=== PATIENT | female | born 1950 | race Caucasian/White ===

== ENCOUNTER → 2023-10-03 08:51 | Outpatient (REF) | payer MEDICARE, BC, SELFPAY ==
[2023-10-03 12:01] LABS: % Basophils 0.7 % (0-2); % Eosinophils 1.3 % (0-6); % Immature Granulocytes 0.4 % (0-0.5); % Lymphocytes 17.1 % (20.5-51.1); % Monocytes 9.9 % (1.7-9.3); % Neutrophils 70.6 % (42.2-75.2); Absolute Eosinophils 0.1 10^3/uL (0-0.7); Absolute Monocytes 0.6 10^3/uL (0.1-0.6); Absolute Neutrophils 3.9 10^3/uL (1.4-6.5); Hematocrit 45.2 % (37.0-47.0); Hemoglobin 14.5 g/dL (12.0-16.0); Mean Corp Hgb Conc. 32.1 g/dL (33.0-37.0); Mean Corpuscular Hgb 27.6 pg (27.0-31.0); Mean Corpuscular Volume 86.1 fL (81.0-99.0); Mean Platelet Volume 10.7 fL (7.4-10.4); Nucleated Red Blood Cells % 0 %; Platelet Count 272 10^3/uL (130-400); Red Blood Cell Count 5.25 10^6/uL (4.20-5.40); Red Cell Dist. Width 13.4 % (11.5-14.5); White Blood Cell Count 5.5 10^3/uL (4.8-10.8)
[2023-10-03 12:19] LABS: ALT (SGPT) 24 U/L (0-35); AST (SGOT) 30 U/L (14-36); Albumin 4.5 g/dl (3.5-5.0); Alkaline Phosphatase 62 U/L (38-126); Blood Urea Nitrogen 20 mg/dl (7-17); Calcium 10.1 mg/dl (8.4-10.2); Carbon Dioxide 33 mmol/L (22-30); Chloride 94 mmol/L (98-107); Glucose 124 mg/dl (70-99); Potassium 3.9 mmol/L (3.5-5.1); Sodium 135 mmol/L (135-145); Total Bilirubin 0.6 mg/dl (0.2-1.3); Total Cholesterol 195 mg/dl (50-199); Total Protein 7.6 g/dl (6.3-8.2); Triglyceride 71 mg/dl (10-149); Very Low Density Lipoprotein 14 mg/dl (0-30); eGFR > 60.00
[2023-10-03 12:23] LABS: Glycohemoglobin (HgbA1c) 5.9 % (4.0-5.6)
[2023-10-03 12:30] LABS: HDL Cholesterol 138 mg/dl; LDL Cholesterol, Calculated 43 mg/dl
[2023-10-03 12:35] LABS: Vitamin D, 25-OH*** 59.3 ng/mL (30-80)
[2023-10-03 12:49] LABS: TSH Reflex To Free T4 0.92 uIU/ml (0.47-4.68)
[2023-10-03 12:59] LABS: Microalbumin, Random Urine 2.5 mg/dl (0.6-1.7)
== END ==
LOC: HWLAB 08:51
PROVIDERS: ATTENDING PHYSICIAN Nurse Practitioner Adult Health
DX: E78.00 Pure hypercholesterolemia, unspecified (principal); R73.03 Prediabetes; E55.9 Vitamin D deficiency, unspecified; D75.1 Secondary polycythemia; R80.9 Proteinuria, unspecified; M85.80 Other specified disorders of bone density and structure, unspecified site
CPT/HCPCS: 36415; 80053; 80061; 82043; 82306; 82570; 83036; 84443; 85025

== ENCOUNTER → 2023-12-22 08:13 | Outpatient (REF) | payer MEDICARE, BC, SELFPAY | LOC: HWWDC 08:13 | PROVIDERS: ATTENDING PHYSICIAN Nurse Practitioner Adult Health | DX: Z12.31 Encounter for screening mammogram for malignant neoplasm of breast (principal) | CPT/HCPCS: 77063; 77067 ==

== ENCOUNTER → 2024-04-02 11:10 | Outpatient (REF) | payer MEDICARE, BC, SELFPAY ==
[2024-04-02 16:04] LABS: ALT (SGPT) 23 U/L (0-35); AST (SGOT) 31 U/L (14-36); Albumin 4.7 g/dl (3.5-5.0); Alkaline Phosphatase 58 U/L (38-126); Blood Urea Nitrogen 19 mg/dl (7-17); Calcium 10.1 mg/dl (8.4-10.2); Carbon Dioxide 30 mmol/L (22-30); Chloride 96 mmol/L (98-107); Glucose 99 mg/dl (70-99); Potassium 4.3 mmol/L (3.5-5.1); Sodium 139 mmol/L (135-145); Total Bilirubin 0.7 mg/dl (0.2-1.3); Total Cholesterol 217 mg/dl (50-199); Total Protein 7.7 g/dl (6.3-8.2); Triglyceride 87 mg/dl (10-149); Very Low Density Lipoprotein 17 mg/dl (0-30); eGFR > 60.00
[2024-04-02 16:14] LABS: HDL Cholesterol 122 mg/dl; LDL Cholesterol, Calculated 78 mg/dl
[2024-04-03 10:01] LABS: Glycohemoglobin (HgbA1c) 5.7 % (4.0-5.6)
== END ==
LOC: HWLAB 11:10
PROVIDERS: ATTENDING PHYSICIAN Nurse Practitioner Adult Health
DX: R73.01 Impaired fasting glucose (principal); E78.00 Pure hypercholesterolemia, unspecified
CPT/HCPCS: 36415; 80053; 80061; 83036

== ENCOUNTER → 2024-06-21 07:22 | Outpatient (REF) | payer MEDICARE, BC, SELFPAY | LOC: HWRAD 07:22 | PROVIDERS: ATTENDING PHYSICIAN Nurse Practitioner Adult Health | DX: Z87.891 Personal history of nicotine dependence (principal) | CPT/HCPCS: 71271 ==

== ENCOUNTER 2024-08-03 23:26 | Inpatient (IN) | payer MEDICARE, BC, SELFPAY ==
[2024-08-03] VITALS (7 sets, daily range): BP systolic 122–155; BP diastolic 67–88
--- NOTE | 2024-08-03 16:06 | ED.GENMED ---
History of Present Illness
General
Chief Complaint: Breathing Problem
Time Seen by Provider: 08/03/24 15:58
History of Present Illness
History of Present Illness:
TIME OF INITIAL ENCOUNTER: 4 PM
HPI: A couple of weeks ago, the patient had worsening shortness of breath. She has a history of COPD. Her primary care provider put her on 5 days of steroids. She was a little bit better. Her cough improved. However in follow-up, it was noted
that she has been doing worse. Her primary care doctor sent a message here indicating room air sats of 88 to 90% after the DuoNeb and she dropped to 85%. Upon arrival here she was 79%. She was tachypneic. Although the patient does have an
abnormal EKG, she denies any chest pain or pressure.
EXAM:
GENERAL: Well appearing in no distress
HEENT: Moist oral mucosa
CARDIOVASCULAR: No murmurs, normal heart rate, regular rhythm, No chest wall tenderness
PULMONARY: The patient is in mild to moderate respiratory distress, she is, she has decreased breath sounds equally, there is wheeze bilaterally
ABDOMEN: Soft with no peritoneal signs, no tenderness
NEUROLOGIC: Excellent strength all extremities, no coordination deficits
PSYCHIATRIC: Appropriate mental status, normal insight and judgement
EXTREMITIES: Nontender, no edema, moves all extremities equally
SKIN: No rash, no lesions
NUMBER AND COMPLEXITY OF PROBLEMS ADDRESSED AT THE ENCOUNTER
� Chronic conditions affecting care: COPD
� Acute Exacerbation and/or Progression of Chronic Illness: This is an acute exacerbation of COPD
� Differential Diagnosis includes: Acute exacerbation of COPD, CHF, pneumonia, ACS
AMOUNT AND/OR COMPLEXITY OF DATA TO BE REVIEWED AND ANALYZED
� I performed an independent evaluation of and my interpretation is:
EKG: Sinus 85, biphasic T waves noted in V3 concerning for Wellen's sign
CT:
X-rays: Chest x-ray suggest some degree of atelectasis but no definite sign of pneumonia
Laboratory Studies: White count 12.1 (patient was recently on steroids), hemoglobin normal BNP 2330, troponin 0.024
Other:
� Review of other/old records: 1 month ago, the patient had a CT of the chest that showed stable nodules and emphysematous changes
� Clinical information was obtained by an independent historian: I spoke to at bedside
� Prescriptions/Medications Considered but not given:
� Further testing considered but not performed: Considered ABG however she does not appear to be hypercapnic with excellent mental status
RISK OF COMPLICATIONS AND/OR MORBIDITY OR MORTALITY OF PATIENT MANAGEMENT
� Social determinants of health affecting care: Lives at home
� Discussion with other providers: Dr. Anderson for admission at 5:15 PM
� Escalation of care including admission/observation vs risk of discharge considered: The patient is hypoxic. She has a history of COPD. She is failing outpatient management. She is still wheezing with decreased breath sounds.
I have placed her on IV steroids and DuoNebs. Planning admission to the hospital.
ANY OTHER UPDATES:
Pt was reated as COPD exacerbation 2wks ago w/ 5d of steroids. At PMD office, 85% RA after neb and on exertion. Very decreased breath sounds w/ wheeze here. 79% RA. 93% on NC oxygen. No definite pneumonia on CXR. Gave 2 duonebs and IV steroids.
COVID/Flu neg. BNP 2330 w/ no old to compare, but I feel CXR less likely - echo 1yr ago unremarkable. No CP, but did trop due to Wellen's appearing EKG and no old to compare; trop 0.024.
5:15 PM: Sats are 98% on 3 L/min after DuoNeb's, I have decreased her FiO2 down to 2 L/min.
Phy Exam
Physical Exam
Physical Exam:
See HPI
Scores
Heart Failure Risk
Heart Failure Risk Score: Not Applicable
Course
Orders/Labs/Results
Orders:
Orders
08/03/24 15:45
Electrocardiogram (*1) Urgent
Reason for Study: Shortness of Breath
EKG- Treatment ONCE
08/03/24 15:55
COVID-19 Antigen Urgent
Source: Nasal Swab
Complete Blood Count/With Diff Urgent
Comprehensive Metabolic Panel Urgent
Influenza A+B Rapid Molecular Urgent
KATIE Source: Nasal Swab
Specimen Description:
08/03/24 16:00
CR Chest Portable - 1 View Urgent
Comment:
Reason For Exam: sob copd
Reason Study Needs to be Portable: Patient Unstable
08/03/24 16:05
Ipratropium/Albuterol Sulfate [Duoneb] 3 ml INH R NOW STA
08/03/24 16:06
Ipratropium/Albuterol Sulfate [Duoneb] 3 ml INH R NOW STA
MethylPREDNISolone PF [Solu-Medrol Pf] 125 mg IV NOW STA
08/03/24 16:13
NT-proBNP Urgent
Troponin I Urgent
Abnormal Lab Results
08/03/24
15:55
WBC 12.1 H 10^3/uL
(4.8-10.8)
Hct 47.1 H %
(37.0-47.0)
MCHC 32.3 L g/dL
(33.0-37.0)
Absolute Neuts (auto) 10.0 H 10^3/uL
(1.4-6.5)
Absolute Lymphs (auto) 0.8 L 10^3/uL
(1.2-3.4)
Absolute Monos (auto) 1.2 H 10^3/uL
(0.1-0.6)
Neutrophils % 82.9 H %
(42.2-75.2)
Lymphocytes % 6.7 L %
(20.5-51.1)
Monocytes % 9.5 H %
(1.7-9.3)
Sodium 134 L mmol/L
(135-145)
Chloride 91 L mmol/L
(98-107)
Carbon Dioxide 36 H mmol/L
(22-30)
BUN 25 H mg/dl
(7-17)
Glucose 141 H mg/dl
(70-99)
08/03/24 15:55
08/03/24 15:55
Vital Signs
Initial and Last Documented VS:
Initial Vital Signs
Temp Pulse Resp Pulse Ox
36.6 C 91 22 79
08/03/24 15:39 08/03/24 15:39 08/03/24 15:39 08/03/24 15:39
Last Documented Vital Signs
Temp Pulse Resp BP Pulse Ox
36.6 C 91 22 155/88 97
08/03/24 15:39 08/03/24 15:39 08/03/24 15:39 08/03/24 15:44 08/03/24 15:44
*Critical Care Note
Total Time (30-74mins, 75-104mins- exclusive of procedures): Not Applicable
ED Attending Note
-
Portions of this chart may have been created with voice recognition software.� Occasional wrong word or��sound alike� substitutions may have occurred due to the inherent limitations of voice recognition software.
Discharge Plan
Departure
Patient Disposition: Admit
Date of Disposition: 08/03/24
Time of Disposition: 17:59
Presentation/result/management discussed w/ accepting MD/DO: Hospitalist
Discharge Problem:
Acute exacerbation of chronic obstructive pulmonary disease (COPD)
Prescriptions:
No Action
Breztri Aerosphere 160-9-4.8 mcg/actuation Hfa Aerosol Inhaler
2 inh INHALATION BID
Rx Instructions:
pt may take own on her
Crestor
10 mg PO HS
M.V.I. Adult
1 cap PO DAILY
Vitamin D3
2,000 units PO DAILY
calcium
1,000 mg PO DAILY
garlic
1 cap PO DAILY
hydrochlorothiazide
25 mg PO DAILY
Interventions
Interventions:
*Risk Screen - Suicide Last Done: 08/03/24 17:28
*General Assessment Last Done: 08/03/24 17:28
*Neglect/Abuse Screening Last Done: 08/03/24 17:28
ED- Cardiac Assessment Last Done: 08/03/24 17:28
ED- Pulmonary Assessment Last Done: 08/03/24 17:28
Discharge Date and Time
Print Language: TELUGU
[2024-08-03] MEDS: DUONEB 3 ML INH ×2 (16:13→16:19)
[2024-08-03] MEDS: SOLU-MEDROL PF 125 MG IV (16:19)
[2024-08-03 16:21] LABS: % Basophils 0.3 % (0-2); % Eosinophils 0.3 % (0-6); % Immature Granulocytes 0.3 % (0-0.5); % Lymphocytes 6.7 % (20.5-51.1); % Monocytes 9.5 % (1.7-9.3); % Neutrophils 82.9 % (42.2-75.2); Absolute Lymphocytes 0.8 10^3/uL (1.2-3.4); Absolute Monocytes 1.2 10^3/uL (0.1-0.6); Hematocrit 47.1 % (37.0-47.0); Hemoglobin 15.2 g/dL (12.0-16.0); Mean Corp Hgb Conc. 32.3 g/dL (33.0-37.0); Mean Corpuscular Hgb 28.3 pg (27.0-31.0); Mean Corpuscular Volume 87.7 fL (81.0-99.0); Mean Platelet Volume 10.4 fL (7.4-10.4); Nucleated Red Blood Cells % 0 %; Platelet Count 184 10^3/uL (130-400); Red Blood Cell Count 5.37 10^6/uL (4.20-5.40); Red Cell Dist. Width 14.2 % (11.5-14.5); White Blood Cell Count 12.1 10^3/uL (4.8-10.8)
[2024-08-03 16:27] LABS: ALT (SGPT) 29 U/L (0-35); AST (SGOT) 34 U/L (14-36); Albumin 4.3 g/dl (3.5-5.0); Alkaline Phosphatase 83 U/L (38-126); Blood Urea Nitrogen 25 mg/dl (7-17); Calcium 9.6 mg/dl (8.4-10.2); Carbon Dioxide 36 mmol/L (22-30); Chloride 91 mmol/L (98-107); Glucose 141 mg/dl (70-99); Potassium 4.2 mmol/L (3.5-5.1); Sodium 134 mmol/L (135-145); Total Bilirubin 0.6 mg/dl (0.2-1.3); Total Protein 7.5 g/dl (6.3-8.2); eGFR > 60.00
[2024-08-03 16:48] LABS: COVID-19 Antigen Negative (Negative)
[2024-08-03 17:01] LABS: NT-proBNP 2330 pg/ml; Troponin I 0.024 ng/ml
--- NOTE | 2024-08-03 19:46 | HPS.HSE ---
Family Physician
-
Family Physician: Idania Mejia
Chief Complaint
-
Shortness of breath, wheezing, hypoxia
History of Present Illness
74-year-old female who reports approximately 2 weeks ago on July 22 she had a persistent cough white in color, shortness of breath, wheezing and was diagnosed with acute bronchitis by her PCP. She was placed on prednisone 50 mg x 5 days starting
July 22 ending July 26 along with an oral course of doxycycline.. She reports feeling only slightly better with her cough improving however her oxygen level had been dropping. She does have history of COPD however states she was diagnosed
approximately [address] Mariana Garcia along with chronic left-sided nodules. She normally does not use her rescue inhaler or any corticosteroid inhalers until her recent bronchitis exacerbation when she was placed on Breztri 2 puffs twice
daily.. She was reportedly at PCP office today with O2 sat 85% on room air after nebulizer and on exertion. She did have very diminished breath sounds with wheezes and was 79% on room air here in the ER improving to 97% on 3 L nasal cannula.
She has past medical history of severe COPD Dx 2020, former smoker 55-year 1 pack a day quit age 71, per patient pulmonary nodules left-sided, depression�mild, splenic artery aneurysm, HTN, vitamin D deficiency, seasonal allergic rhinitis, HLD,
prediabetes, cervicothoracic meningioma 2006, cataracts
Medical History
Past Medical History
Past Medical History: Reports Other
Additional Past Medical History:
COPD-severe with previous PFT showing severe obstruction mild barrel chest per outpatient note July 30, 2024
Former smoker�55-year 1 pack a day quit age 71
Known left-sided pulmonary nodules follows with Dr. Garcia pulmonary
Depression�mild
Splenic artery aneurysm-patient was advised outpatient 2023 to be getting screenings but only once low-dose CT scan she was advised the risk of missing progression/ruptures and is okay with that per note
HTN
HLD
Vitamin D deficiency
Seasonal allergic rhinitis
prediabete
cervicothoracic meningioma 2006
cataracts
Past Surgical History: Reports Other
Additional Past Surgical History:
Wrist surgery 02/2004
Tubal ligation 1980
Colonoscopy multiple
Social History
Tobacco: Former Smoker (55-year 1 pack/day quit age 71)
Alcohol: None
Drug: None
Personal: (54 years to Juan)
Living: Alone
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
Family History
Family History: Other (Mother lung cancer age 84, father age 65 colorectal cancer 3 brothers 2 sisters reports all healthy is not sure of any medical problems. 1 daughter 1 son all healthy)
Allergies / Home Medications
Allergies reflects when Allergies were last updated in [employer]
Home Medications with original date entered in [employer]
Allergy/Medication List:
Allergies
Allergy/AdvReac Type Severity Reaction Status Date / Time
No Known Allergies Allergy Unverified 08/03/24 15:42
Home Medications
Crestor 10 mg PO HS 08/03/24
M.V.I. Adult 1 cap PO DAILY 08/03/24
Vitamin D3 2,000 units PO DAILY 08/03/24
budesonide 160 mcg-glycopyr 9 mcg-formot 4.8 mcg/actuation HFA inhaler (Breztri Aerosphere) 2 inh inhalation BID 08/03/24
calcium 1,000 mg PO DAILY 08/03/24
garlic 1 cap PO DAILY 08/03/24
hydrochlorothiazide 25 mg PO DAILY 08/03/24
Review of Systems
-
History Source: Patient and Family ( Juan hernandez 54 years at bedside)
A 12 point ROS was completed and negative except as noted: Yes
Constitutional: Denies Fever, Fatigue or Chills
EENT: Denies Sore Throat or Runny Nose
Respiratory: Reports Trouble Breathing (Shortness of breath with wheezing and AC); Denies Cough (White productive)
Cardiac: Denies Chest Pain, Diaphoresis, Palpitations or Syncope
Abdomen/GI: Denies Abdominal Pain, Nausea, Vomiting, Diarrhea, Constipated, Bloody Stools or Black Stools
: Denies Dysuria, Frequency, Flank Pain, Incontinence, Difficulty Voiding, Urgency or Bleeding
Musculoskeletal: Denies Joint Pain or Edema
Skin: Denies Itching or Rash
Neurological: Reports Headache (Frontal); Denies Dizzy or Weakness
Endocrine: Reports No Symptoms
Hematologic/Lymphatic: Reports No Symptoms
Psych: Reports Calm
Physical Exam
Vital Signs
Vital Signs
Temp Pulse Resp BP Pulse Ox
97.8 F 91 22 155/88 97
08/03/24 15:39 08/03/24 15:39 08/03/24 15:39 08/03/24 15:44 08/03/24 15:44
Physical Exam
General: Comfortable and Conversant; No Fever or Chills
HEENT: NormoCephalic, Anicteric, Moist mucous membranes, PERRLA, [place] Conjunctivae, No Ptosis and Oxygen (3 L nasal cannula)
Respiratory: Wheezes (Expiratory throughout both lung dhaliwal); No Rales or Rhonchi
Cardiac: S1/S2 and Regular Rhythm (Heart rate 98 bpm); No Murmur, Rub, Gallop or Peripheral Edema
Breast: Deferred by me
GI: Soft, Non Tender, Non Distended, Normal Bowel Sounds and No Hepatosplenomegaly
Rectal: Deferred by Provider
Genito-urinary: Deferred by me
Musculoskeletal: No Clubbing, No Cyanosis and No Edema
Skin: Warm and Dry; No Rash
Neuro: AO x 3, No Motor Deficits, Nonfocal/grossly intact, Cranial Nerves Intact and No Sensory Deficits; No Slurred Speech, Facial Droop, Tremors or Sedated
Psych: Calm
Laboratory Results
-
08/03/24 15:55
08/03/24 15:55
Laboratory Results
Total Bilirubin 0.6 mg/dl (0.2-1.3) 08/03/24 15:55
AST 34 U/L (14-36) 08/03/24 15:55
ALT 29 U/L (0-35) 08/03/24 15:55
Alkaline Phosphatase 83 U/L (38-126) 08/03/24 15:55
Troponin I 0.024 ng/ml 08/03/24 16:13
Data Reviewed
-
Diagnostic Radiology: Report Reviewed by me
Lab Data: Labs Reviewed by me
Impression/Plan
-
Impression/plan:
Admit to IMU
#Acute hypoxic respiratory insuff secondary to Acute Pulmonary Emboli RLL segmental pulmonary arteries
# NEW 4.6 centimeters dense subpleural CONSOLIDATION in the LLL concern for Pulmonary infarct or left lower lobe pneumonia
#Known LEFT SIDED PULM CYST [address] Garcia pulmonary
Finished 50 mg 5-day pack 07/22 - 07/26/2024 and doxycycline 100 mg twice daily 7-day course on 07/29/2024
79% RA, 96% 3 L NC, WBC 12.1 with left shift, afebrile, HR 91, 122/70
-COVID/influenza negative
-Sputum culture
-Check CT PE study
-Will give IV 0.9 NSS saline and follow BMP postcontrast
-IV Heparin drip with bolus due to pulmonary emboli
-Check 2D echo
-Consult Pulmonary
-Consult CBC cardiology
#NEW multifocal peripheral endobronchial disease throughout both lungs concern for atypical mycobacterial infection
-Respiratory precautions
-Monitor pulse ox, continue 3 L nasal cannula to titrate
-Consult Infectious disease
-IV Rocephin, IV Zithromax to cover for now until evaluation by ID
#COPD-Severe with previous PFT showing severe obstruction mild barrel chest per outpatient note July 30, 2024
#Former smoker�55-year 1 pack a day quit age 71
-Solu-Medrol 125 mg given in ER will continue IV Decadron 4 mg every 6 hours
CXR: Cannot exclude some minor bibasilar subsegmental atelectasis less likely pneumonia
#Acute hypoxia with abnormal EKG likely secondary to ischemia from PE
-Troponin 0.024 will trend
-Follow EKG
-Consult CBC cardiology
EKG: NSR 85 bpm, QTc 423 MS with T wave inversions anterior leads V1, V2, V3 and no prior EKGs
#HTN�benign
-BP 155/88
-Follow CBC cardiology
-Continue HCTZ 25 mg daily
2D echo 06/26/2023: EF 65 to 70%. No wall abnormalities, normal RVS RVSF, no valvular disease mild TR, pulm arterial pressure 36 mmHg
#HLD
-Check lipid profile
-Continue Crestor 10 mg at bedtime
#History of splenic artery aneurysm
-Per PCP note June 08, 2024 patient wanted low-dose CT scan of the chest for lung cancer screening was advised does not have recommended screening for splenic artery aneurysm which could miss a growth and therefore ruptured splenic artery
aneurysm which can lead to she verbalized understanding and continued to decline so per note. She did mention to me today about low-dose CT scans.
#Vitamin D deficiency
-Patient prefers to take her own medications due to hospital costs
-May take vitamin D3 2000 units, MVI
#Reported prediabetes
-BS 141, will check HgbA1c
Other PMH:
Seasonal allergic rhinitis
Cervicothoracic meningioma 2006
cataracts bilateral eyes states is in workup to have surgical repair
DVT prophylaxis
IV heparin drip
Full code
[2024-08-03 21:32] LABS: Troponin I 0.022 ng/ml
--- NOTE | 2024-08-03 21:38 | W.PN.UPDATE ---
Update Note
Progress Note Update
Attending addendum
Patient seen independently
74-year-old woman with SOB. 2 weeks ago she had a persistent cough, shortness of breath, wheezing and was diagnosed with acute bronchitis. She was placed on prednisone 50 mg x 5 days and an oral course of doxycycline. She has a history of COPD.
Today her O2 sat 85% on room air after nebulizer and on exertion. She had diminished breath sounds with wheezes and was 79% on room air here in the ER improving to 97% on 3 L nasal cannula. PE study CT was ordered in ER, but it is still pending.
Past Medical History
COPD-severe with previous PFT showing severe obstruction
Former smoker�55-year 1 pack a day quit age 71
Known left-sided pulmonary nodules
Depression�mild
Splenic artery aneurysm
essential HTN
HLD
Vitamin D deficiency
Seasonal allergic rhinitis
prediabetes
cervicothoracic meningioma 2006
cataracts
Wrist surgery 02/2004
Tubal ligation 1980
Colonoscopy multiple
Physical Exam
General: Comfortable and Conversant; No Fever or Chills, but tachypneic.
HEENT: NormoCephalic, Anicteric, Moist mucous membranes, PERRLA, [place] Conjunctivae, No Ptosis and Oxygen (3 L nasal cannula)
Respiratory: Wheezes (Expiratory throughout both lung dhaliwal); No Rales or Rhonchi
Cardiac: S1/S2 and Regular Rhythm (Heart rate 98 bpm); No Murmur, Rub, Gallop or Peripheral Edema
GI: Soft, Non Tender, Non Distended, Normal Bowel Sounds and No Hepatosplenomegaly
Psych: Calm
Impression/plan:
1. Acute hypoxic respiratory insuff secondary to Acute on chronic Severe COPD exac, vs PE vs
-Sputum culture
-Solu-Medrol 125 mg given, continue with IV Decadron 4 mg every 6 hours
-Check CT PE study
-IV 0.9 NSS saline and follow BMP postcontrast
2. Acute hypoxia with abnormal EKG concern for ischemic changes
-Troponin 0.024 will trend
-Follow EKG
-Consult CBC cardiology
please see [employer] note for full details on
HTN�benign
HLD
History of splenic artery aneurysm
Vitamin D deficiency
Reported prediabetes
Seasonal allergic rhinitis
Cervicothoracic meningioma 2006
cataracts bilateral eyes states is in workup to have surgical repair
DVT prophylaxis VCD
Full code
--- NOTE | 2024-08-03 22:35 | W.PN.UPDATE ---
Update Note
Progress Note Update
Patient has PE. Heparin gtt will be ordered.
[2024-08-03 22:51] LABS: Hematocrit 43.3 % (37.0-47.0); Hemoglobin 14.5 g/dL (12.0-16.0); Mean Corp Hgb Conc. 33.5 g/dL (33.0-37.0); Mean Corpuscular Hgb 28.8 pg (27.0-31.0); Mean Corpuscular Volume 85.9 fL (81.0-99.0); Mean Platelet Volume 10.4 fL (7.4-10.4); Platelet Count 179 10^3/uL (130-400); Red Blood Cell Count 5.04 10^6/uL (4.20-5.40); Red Cell Dist. Width 14.2 % (11.5-14.5); White Blood Cell Count 10.3 10^3/uL (4.8-10.8)
[2024-08-03] MEDS: HEPARIN 25000 UNITS/250 ML IV (22:55)
[2024-08-03] MEDS: NSS 1000 IV (23:00)
[2024-08-03 23:04] LABS: APTT 28.3 Sec (23.4-35.0)
[2024-08-03] MEDS: HEPARIN 4100 UNITS IV (23:04)
[2024-08-04] VITALS (13 sets, daily range): BP systolic 121–152; BP diastolic 64–82
[2024-08-04] MEDS: STERILE WATER FOR INJECTION 10 ML IV (00:32)
[2024-08-04] MEDS: ROCEPHIN 1000 MG IV (00:32)
[2024-08-04] MEDS: ZITHROMAX INFUSION 250 IV (00:32)
[2024-08-04] MEDS: DECADRON 4 MG IV ×4 (00:33→17:34)
[2024-08-04 00:52] LABS: Troponin I 0.018 ng/ml
--- NOTE | 2024-08-04 02:09 | DOWNTIME ---
There was a [employer] Downtime on 08/04/2024 from 0100 to 08/04/2024 at 0205 . Downtime documentation of patient's care, including medication administrations, has been reconciled in the electronic record per guidelines. Refer to the
patient's paper chart under the miscellaneous tab to see printed paper medication records and downtime forms.
[2024-08-04 06:00] LABS: % Basophils 0.1 % (0-2); % Immature Granulocytes 0.6 % (0-0.5); % Lymphocytes 4.8 % (20.5-51.1); % Monocytes 1.8 % (1.7-9.3); % Neutrophils 92.7 % (42.2-75.2); Absolute Immature Granulocytes 0.1 10^3/uL (0-0.05); Absolute Lymphocytes 0.4 10^3/uL (1.2-3.4); Absolute Monocytes 0.2 10^3/uL (0.1-0.6); Absolute Neutrophils 8.3 10^3/uL (1.4-6.5); Hematocrit 41.3 % (37.0-47.0); Hemoglobin 13.5 g/dL (12.0-16.0); Mean Corp Hgb Conc. 32.7 g/dL (33.0-37.0); Mean Corpuscular Hgb 28.5 pg (27.0-31.0); Mean Corpuscular Volume 87.1 fL (81.0-99.0); Mean Platelet Volume 10.1 fL (7.4-10.4); Nucleated Red Blood Cells % 0 %; Platelet Count 182 10^3/uL (130-400); Red Blood Cell Count 4.74 10^6/uL (4.20-5.40); Red Cell Dist. Width 14.1 % (11.5-14.5); White Blood Cell Count 8.9 10^3/uL (4.8-10.8)
[2024-08-04 06:09] LABS: APTT 96.2 Sec (23.4-35.0)
[2024-08-04 07:00] LABS: ALT (SGPT) 25 U/L (0-35); AST (SGOT) 28 U/L (14-36); Albumin 3.5 g/dl (3.5-5.0); Alkaline Phosphatase 67 U/L (38-126); Blood Urea Nitrogen 21 mg/dl (7-17); Calcium 8.7 mg/dl (8.4-10.2); Carbon Dioxide 32 mmol/L (22-30); Chloride 96 mmol/L (98-107); Estimated Creatinine Clearance 67 ml/min; Glucose 189 mg/dl (70-99); HDL Cholesterol 100 mg/dl; LDL Cholesterol, Calculated 70 mg/dl; Magnesium 1.9 mg/dl (1.6-2.3); Potassium 4.1 mmol/L (3.5-5.1); Sodium 134 mmol/L (135-145); Total Bilirubin 0.3 mg/dl (0.2-1.3); Total Cholesterol 181 mg/dl (50-199); Total Protein 6.5 g/dl (6.3-8.2); Triglyceride 59 mg/dl (10-149); Very Low Density Lipoprotein 11 mg/dl (0-30); eGFR > 60.00
[2024-08-04] MEDS: NSS IV (07:25)
[2024-08-04] MEDS: THERAGRAN PO (08:11)
--- NOTE | 2024-08-04 08:46 | CON.PUL ---
Consultation
Consultation Request
Date/Time Consultation Requested: 08/04/24
Date/Time Consultation Performed: 08/04/24
Performing Provider: Radha
Reason for Consultation: AECOPD
Medical History
-
History of Present Illness:
Patient is a 74-year-old female with history of HTN, presenting to ER for productive cough-white sputum, SOB/wheezing, 2 weeks prior. Treated with abx and prednisone and was notably hypoxemic in the PCP office to 85% on RA. Was sent to ER for
eval.
On arrival, notably 79% on RA. Underwent CTA showing PE, she is placed on IV heparin.
She was last seen in our office in 2020 for severe COPD and has not returned in FU since.
Past Medical History
Past Medical History: Other (see list below)
Social History
Tobacco: Former Smoker
Alcohol: None
Drug: None
Family History
Family History: Reviewed & Not Pertinent
Allergies / Home Medications
Allergies
Allergy/AdvReac Type Severity Reaction Status Date / Time
No Known Allergies Allergy Unverified 08/03/24 15:42
Home Medications
�Medication �Instructions �Recorded �Confirmed �Last Taken �Type
budesonide 160 mcg-glycopyr 9 2 inh inhalation R BID 08/03/24 08/04/24 08/03/24 09:00 History
mcg-formot 4.8 mcg/actuation HFA
inhaler (Breztri Aerosphere)
calcium carbonate 500 mg PO DAILY 08/03/24 08/03/24 08/02/24 09:00 History
cholecalciferol (vitamin D3) 25 25 mcg PO DAILY 08/03/24 08/03/24 08/02/24 09:00 History
mcg (1,000 unit) tablet (Vitamin
D3)
garlic 1,000 mg PO DAILY 08/03/24 08/04/24 08/02/24 09:00 History
hydrochlorothiazide 25 mg tablet 25 mg PO DAILY 08/03/24 08/03/2425 09:00 History
rosuvastatin 10 mg tablet (Crestor) 10 mg PO DAILY 08/03/24 08/03/24 08/02/24 22:00 History
therapeutic multivitamin 1 tab PO DAILY 08/03/24 08/03/24 08/02/24 09:00 History
Review of Systems
-
History Source: Patient
All other systems: Negative unless noted
Vitals / Labs / Diagnostic Testing
Vital Signs
Temp Pulse Resp BP Pulse Ox
98.0 F 77 27 135/74 96
08/04/24 07:12 08/04/24 06:00 08/04/24 06:00 08/04/24 06:00 08/04/24 06:00
Lab Data
08/04/24 05:50
08/04/24 05:50
Laboratory Results
08/03/24 08/04/24
22:44 05:50
APTT 28.3 96.2 H
Microbiology
08/03/24 15:55 Nasal Swab Influenza Types A & B (KHADIJAH) - Final
Negative for Influenza A & B, NAAT
Negative results must be combined with clinical observations
and patient history.
Nucleic Acid Amplification test (NAAT)performed on the
[employer] platform.
Diagnostic Testing:
Physical Exam
-
HEENT: Normocephalic, Anicteric and Moist Mucous Membranes
Cardiovascular: S1/S2 and Regular Rhythm
Respiratory: Wheeze (on R) and Non-Labored Respirations
GI: Soft, Non Distended and Non Tender
Neurology: Awake, Alert, Oriented and No Motor Deficits
Skin: Warm, Dry and Good Color
General: Comfortable and Other (NAD)
Assessment
-
Patient is a 74-year-old female with history of HTN, presenting to ER for productive cough-white sputum, SOB/wheezing, 2 weeks prior. Treated with abx and prednisone and was notably hypoxemic in the PCP office to 85% on RA. Was sent to ER for
eval. On arrival, notably 79% on RA. Underwent CTA showing PE, she is placed on IV heparin. We are consulted for eval.
Acute hypoxic respiratory failure, 79% on RA
Acute RLL PE
LLL consolidation infarct vs PNA
AECOPD
Hyperglycemia
Elevated proBNP
Conditions present [facility]
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
Followed by Dr Garcia, last seen 2020
Former smoker�55-year 1 pack a day quit age 71
Pulmonary nodules
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
Depression�mild
Splenic artery aneurysm
HTN
HLD
Vitamin D deficiency
Seasonal allergic rhinitis
Prediabetes
Cervicothoracic meningioma 2006
Cataracts
Wrist surgery 02/2004
Tubal ligation 1980
Plan
Significant hypoxemia noted on arrival, O2 marion 79%
There is no known history of O2 use at home--last 6MWT in office had not needed it
Will need eventual home O2 eval
There is known prior history of lung disease including severe COPD/emphysema
She was last seen in our office in 2020 and has not returned in FU since, has appt in September
Had not been on her controller inhalers, placed on Breztri 1 week prior by her primary
CXR/CT obtained indicating RLL PE, she is placed on IV heparin
Eventual transition to OAC
Other imaging reviewed --possible LLL infiltrate
Check sputum culture
Could consider coverage with azithro
Started on IV steroids for AECOPD
Eventual transition to PO prednisone
Wheezing on exam
Resume on home inhalers
ECHO results in past reviewed, stable function
She has new stage I DD, proBNP somewhat high
Could be due to PE
Diuresis if indicated
Will need outpatient pulmonary evaluation in our office including PFTs and 6MWT
Reviewed with patient
Likely to move up her appt date pending discharge
I reviewed this at bedside with patient and
We will follow
Diagnostic Data
CXR 08/03/24- Cannot exclude some minor bibasilar subsegmental atelectasis, less likely pneumonia.
CT CHEST 08/03/24- 1. ACUTE PULMONARY ARTERIAL EMBOLI in RIGHT LOWER LOBE SEGMENTAL PULMONARY ARTERIES.
2. Mild pulmonary arterial hypertension.
3. SEVERE BILATERAL UPPER LOBE EMPHYSEMA.
4. New 4.6 cm dense subpleural airspace consolidation in the posterior basilar segment of the left lower lobe. Diagnostic possibilities are (1) an acute pulmonary infarct or (2) left lower lobe pneumonia.
5. NEW MULTIFOCAL PERIPHERAL ENDOBRONCHIAL DISEASE throughout both lungs which is most likely infectious in etiology (possibly atypical mycobacterial infection).
6. Moderate bilateral bronchitis.
7. 4.0 cm circumscribed benign-appearing cyst in the left side of the upper posterior mediastinum.
ECHO 08/04/24- Normal left ventricular chamber size. Normal left ventricular systolic function. Left ventricular ejection fraction is 65-70% by volumetric assessment. Normal regional wall motion. Normal left ventricular wall thickness. Stage I
diastolic dysfunction suggestive of abnormal relaxation. Normal right ventricular size and function. Normal atria. No significant valve abnormalities are observed. The IVC is moderately dilated and demonstrates normal respiratory variation. Right
atrial pressure estimated at 12 mmHg. No evidence of pulmonary hypertension. Compared to prior study of 06/26/2023, there is now diastolic dysfunction and the IVC is moderately dilated.
Spirometry 07/12/21: FEV1 0.74L 31%, FVC 1.6L 51%, ratio 46. Post FEV1 0.96L 41%, +BD response in FEV1 and FVC (severe obstruction).
Reports and relevant images were personally reviewed.
-----
Total time spent on this consultation _76__ minutes which includes review of history, physical exam, medications, llaboratory data, personal review of imaging, extensive review of outpatient records, and discussions with care team.
--- NOTE | 2024-08-04 09:28 | CON.CAR ---
Addendum entered and electronically signed by Kem Colon MD 08/04/24 11:58:
74 yo female with PMH of COPD admitted with SOB. Found to have PE. She reports SOB. No chest pain. Exam with RRR, no murmurs, no edema. EKG: NSR, anterior TWI. TnI peak 0.024.
Echo: EF 65-70%, no sig valve disease.
EKG mildly abnormal. Echo normal. Continue AC for PE. No additional cardiac recs at this time.
Original Note:
Consultation
Consultation Request
Date/Time Consultation Requested: 08/03/2024 23:30
Date/Time Consultation Performed: 08/04/2024 09:30
Requesting Provider: YASMEEN Freedman
Performing Provider: YASMEEN Medina for Dr. Colon
Reason for Consultation: PE, abnormal troponin
Medical History
-
Chief Complaint: Shortness of breath
History of Present Illness:
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 Earlier this month she was diagnosed with acute
bronchitis by her PCP. She was given a prednisone taper and a course of doxycycline. She did not feel significant improvement and she had hypoxia. She saw her PCP and was referred to the emergency room for hypoxia, tachypnea, and significant AC.
A PE study was ordered. It showed acute pulmonary arterial emboli in the right lower lobe subsegmental pulmonary arteries, severe bilateral upper lobe emphysema, and new multifocal peripheral endobronchial disease. Cardiology was consulted for
troponin. Highest troponin was initial lab draw at 0.024. EKG shows anterior T wave abnormality. The patient is on a heparin drip. Pulmonary has been consulted for her PE.
Past Medical History
Past Medical History: COPD and Renal Failure (CKD stage II with proteinuria)
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
Social History
Tobacco: Former Smoker
Personal:
Living: With Family
Family History
Family History: Reviewed & Not Pertinent
Allergies / Home Medications
Allergy/AdvReac Type Severity Reaction Status Date / Time
No Known Allergies Allergy Unverified 08/03/24 15:42
�Medication �Instructions �Recorded �Confirmed �Type
budesonide 160 mcg-glycopyr 9 2 inh inhalation R BID 08/03/24 08/04/24 History
mcg-formot 4.8 mcg/actuation HFA
inhaler (Breztri Aerosphere)
calcium carbonate 500 mg PO DAILY 08/03/24 08/03/24 History
cholecalciferol (vitamin D3) 25 25 mcg PO DAILY 08/03/24 08/03/24 History
mcg (1,000 unit) tablet (Vitamin
D3)
garlic 1,000 mg PO DAILY 08/03/24 08/04/24 History
hydrochlorothiazide 25 mg tablet 25 mg PO DAILY 08/03/24 08/03/24 History
rosuvastatin 10 mg tablet (Crestor) 10 mg PO DAILY 08/03/24 08/03/24 History
therapeutic multivitamin 1 tab PO DAILY 08/03/24 08/03/24 History
Review of Systems
-
History Source: Patient
All other systems: Negative unless noted
Constitutional: Fatigue
EENT: No Symptoms
Respiratory: Cough and Trouble Breathing
Cardiac: No Symptoms
Abdomen/GI: No Symptoms
: No Symptoms
Musculoskeletal: No Symptoms
Skin: No Symptoms
Neurological: Weakness
Endocrine: No Symptoms
Hematologic/Lymphatic: No Symptoms
Physical Exam
Vital Signs
Temp Pulse Resp BP Pulse Ox
98.0 F 77 27 135/74 96
08/04/24 07:12 08/04/24 06:00 08/04/24 06:00 08/04/24 06:00 08/04/24 06:00
Lab Results
08/04/24 05:50
08/04/24 05:50
Troponin I 0.018 ng/ml 08/04/24 00:12
Sia-A-[id number] Pept 2330 pg/ml 08/03/24 16:13
Physical Exam
General: Well Developed, Well Nourished, No Apparent Distress and Comfortable
HEENT: Normocephalic, Anicteric and Moist Mucous Membranes
Respiratory: Clear and Non Labored Respirations
Cardiac: S1/S2 and Regular Rhythm; Negative Peripheral Edema
Breast: Deferred by me
GI: Soft, Non Tender, Non Distended and Normal Bowel Sounds
Rectal: Deferred by Provider
Genito-urinary: No Costovertebral Tender
Musculoskeletal: No Clubbing and No Cyanosis
Skin: Warm and Dry
Neuro: AO x 3
Hematologic/Lymphatic: No Lymphadenopathy
Psych: Calm
Impression / Plan
-
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 Cardio consulted for troponin & EKG.
Pulmonary embolism
-On heparin drip
-She presented with shortness of breath and failed prednisone and doxycycline (history of COPD)
-Her troponin is not abnormal
-Echocardiogram is stable without right heart strain and normal LVEF
Abnormal EKG
-No chest pain
-Anterior T wave abnormality is not necessarily uncommon in the setting of PE
COPD, last saw Dr. Peña in 2020
CKD stage II with proteinuria, seen by Dr. Guidry in the past
Splenic artery aneurysm, 1 cm peripherally calcified, saw Dr. Guerrier in the outpatient setting
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
[2024-08-04 09:51] LABS: Glycohemoglobin (HgbA1c) 6.5 % (4.0-5.6)
--- NOTE | 2024-08-04 10:00 | CM ---
Addendum entered by Andie King 08/04/24 10:25:
coupon provided to patient
Addendum entered by Andie King 08/04/24 10:17:
Cost of Medication is 103.24 $ under [employer] per [facility] pharmacist. Patient confirmed that her insurance is [employer] for medications. Patient indicated that they would discuss with [facility] payment of deductable. CM plan is to obtain coupon for
patient at discharge. CM will continue to follow for discharge planning needs.
Original Note:
Patient seen at bedside with and physician. Patient and expressed concerns that patient needed to be staying overnight for PE per physician. Patient denied hardship to stay but expressed concerns that patient was more
comfortable at home. Patient stated that her PCP is Dr Mejia and she uses the [facility] in [place] for her pharmacy needs. Patient indicated that her medication coverage had not issued a new card and her IC # is [id number] [facility], CM will call
to confirm cost of Eliquis. CM called to [facility], and they recently filled patient prescription for [employer] Med part D on 07/22/24. Pharmacy agreed to confirm cost of eliquis for 10mg 2x daily for one week and then 5mg 2x daily for 30 days. awaiting
call back. CM will continue to follow for discharge planning needs.
Plan; home with VN vs home with no needs; pending coupon for medication/cost discussion.
--- NOTE | 2024-08-04 10:03 | W.PN.HOSP.TC ---
Today's Communication/Plan
-
cont IV heparin
await input from pulm/ID/cards
echo pending
cont current ABX for now
Assessment / Plan
Assessment / Plan
pt is a 74 year old female
Acute hypoxic respiratory insufficiency (requiring O2 2L NC) secondary to Acute Pulmonary Emboli RLL segmental pulmonary arteries with NEW 4.6 centimeters dense subpleural CONSOLIDATION in the LLL concern for Pulmonary infarct or left lower lobe
pneumonia (Known LEFT SIDED PULM CYST [address] Garcia pulmonary)--covid/flu negative--cont IV heparin with conversion to Eliquis eventually (CM pricing)--echo pending--await sputum culture--await pulm consult
NEW multifocal peripheral endobronchial disease throughout both lungs concern for atypical mycobacterial infection? (Finished 50 mg 5-day pack 07/22 - 07/26/2024 and doxycycline 100 mg twice daily 7-day course on 07/29/2024)--await ID consult--for now
cont rocephin/zithromax but maybe need to broaden coverage
COPD-Severe with previous PFT showing severe obstruction mild barrel chest per outpatient note July 30, 2024--quit tobacco 3 years ago (55 pk yr)--cont steroids
abnormal EKG likely secondary to ischemia from PE--Troponin 0.024 will trend--Follow EKG--await cards input (EKG: NSR 85 bpm, QTc 423 MS with T wave inversions anterior leads V1, V2, V3 and no prior EKGs)
Essential HTN�cont meds with parameters as able--last echo 2022
HLD--Continue Crestor 10 mg at bedtime--lipid panel OK
History of splenic artery aneurysm--Per PCP note June 08, 2024 patient wanted low-dose CT scan of the chest for lung cancer screening was advised does not have recommended screening for splenic artery aneurysm which could miss a growth and
therefore ruptured splenic artery aneurysm which can lead to she verbalized understanding and continued to decline so per note. She did mention to me today about low-dose CT scans.
Vitamin D deficiency--Patient prefers to take her own medications due to hospital costs--May take vitamin D3 2000 units, MVI
Reported prediabetes--HgbA1c pending
Seasonal allergic rhinitis
Cervicothoracic meningioma 2006
cataracts bilateral eyes states is in workup to have surgical repair
DVT prophylaxis--IV heparin drip
Code status --Full code
Anticipated Discharge: > 48 hours
Subjective/Interval History
-
Date of Service: August 04, 2024
pt appeared more concerned with her fiddling with the cellphone and hook up....
Objective Data
-
Labs:
Laboratory Results
08/03/24 08/04/24 08/04/24
22:44 05:50 11:50
WBC 10.3 8.9
Hgb 14.5 13.5
Hct 43.3 41.3
Plt Count 179 182
APTT 28.3 96.2 H Pending
Sodium 134 L
Potassium 4.1
Chloride 96 L
Carbon Dioxide 32 H
BUN 21 H
Creatinine 0.5 L
Glucose 189 H
Calcium 8.7
Total Bilirubin 0.3
AST 28
ALT 25
Alkaline Phosphatase 67
Vital Signs:
max temp for 24 hours
08/03/24
15:39
Temp 97.8 F
Vital Signs
Temp Pulse Resp BP Pulse Ox
98.0 F 77 27 135/74 96
08/04/24 07:12 08/04/24 06:00 08/04/24 06:00 08/04/24 06:00 08/04/24 06:00
Review of Systems
-
All other systems: Reviewed and negative
Respiratory: Reports Trouble Breathing
Physical Exam
-
General: Well Developed, Well Nourished and No Apparent Distress
HEENT: Normocephalic, Atraumatic and Oxygen
Respiratory: Wheezes (diffusely throughout)
Cardiac: Regular Rhythm and S1/S2; Negative Murmur
GI: Soft, Nontender, Nondistended and Normal Bowel Sounds
Musculoskeletal: No Clubbing, No Cyanosis and No Edema
Neuro: Awake and Alert
Psych: Calm
[2024-08-04 12:12] LABS: APTT 73.8 Sec (23.4-35.0)
--- NOTE | 2024-08-04 12:15 | CON.ID ---
Consultation
-
Date/Time Consultation Requested: August 03, 2024 [id number]
Date/Time Consultation Performed: August 03, 2024
Requesting Provider: YASMEEN Freedman
Performing Provider: Dr. Anusha Tong
Reason for Consultation: New PE, new multifocal endobronchial disease, new mass
Chief Complaint / Past History
Chief Complaint
low oxygen
History of Present Illness
History obtained from review of outside records, from patient as well as from her at bedside. She is a 74-year-old female with COPD, pulmonary nodules and follows with outside repairer special who presented to the hospital yesterday from her PCPs
office due to hypoxia. On July 12, 2024, she presented to urgent care due to 1 week history of cough, head and chest congestion with subjective fever. She was prescribed doxycycline x 10 days for bronchitis. She had follow-up with her PCP on
July 20; symptoms have improved 80%. However patient noted to have wheezing on exam and she was placed on prednisone x 5 days for COPD exacerbation. Her symptoms subsequently resolved. She then developed cough x 2 days with phlegm. Also
shortness of breath. She saw her PCP yesterday August 03. Her O2 sat dropped to 85% with ambulation and without improvement after nebulized treatment. She was therefore sent to the hospital. CAT scan shows right sided PE, new wedge shaped
consolidation left lobe, new multifocal peripheral tree-in-bud endobronchial disease, moderate bilateral bronchitis. She is currently on ceftriaxone and azithromycin. Also on heparin drip. Patient denies sedentary lifestyle, no recent long trips.
No family history of DVTs or PEs. Patient reports she feels much improved. Cough is minimal and now nonproductive. She ambulated in the room [id number] 15 times without getting short of breath. No unintentional weight loss. No fevers or
chills.
Past History
Additional Past Medical History:
Severe COPD
pulmonary nodules
Lung cyst
HTN
HLD
Splenic artery aneurysm
cervicothoracic meningioma 2006
Cataracts
Allergy History:
No Known Allergies Allergy (Unverified 08/03/24 15:42)
Medications Reviewed: Yes
Current Antibiotics:
Ceftriaxone
Azithromycin
Social History
Tobacco: Former Smoker
Alcohol: None
Drug: None
Personal:
Living: With Family
Family History
Family History: Not Pertinent
Review of Systems
Review of Systems
General: Negative Fever, Chills or Change in Appetite
HEENT: Negative Sinus Problems, Headache or Pharyngitis
Cardiovascular: Negative Chest Pain
Respiratory: Dyspnea and Cough (occasional); Negative Sputum Production
Gasteroenterology: Negative Nausea, Vomiting or Diarrhea
Genital / Urological: Negative Dysuria, Hematuria or Flank Pain
Endocrine: Negative Weakness
Skin / Hair / Nails: Negative Rash
Neurological: Negative Dizziness
All systems: All other systems were reviewed and were negative
Vital Signs
Temp Pulse Resp BP Pulse Ox
98.0 F 88 26 150/79 94
08/04/24 10:56 08/04/24 10:00 08/04/24 10:00 08/04/24 10:00 08/04/24 10:00
Physical Exam
Physical Exam
Constitutional: No Acute Distress and Comfortable
Head: Other (No frontal or max or sinus tenderness)
Eyes: No Conjunctival Hemorrhage and Sclera Anicteric
Cardiovascular: Regular Rate and S1/S2
Pulmonary: Rhonchi; Negative Wheezes (scant wheeze with inspiration) or Rales
Gastrointestinal: Soft, Non Tender, Non Distended and Normal Bowel Sounds
Genito-Urinary: Negative CVA Tenderness
Extremities: Negative Edema
Neurological: AO x 3
Lab / Diagnostic Study Results
08/04/24 05:50
08/04/24 05:50
Abs Immat Gran (auto) 0.1 10^3/uL (0-0.05) H 08/04/24 05:50
Absolute Neuts (auto) 8.3 10^3/uL (1.4-6.5) H 08/04/24 05:50
Absolute Lymphs (auto) 0.4 10^3/uL (1.2-3.4) L 08/04/24 05:50
Absolute Monos (auto) 0.2 10^3/uL (0.1-0.6) 08/04/24 05:50
Absolute Basos (auto) 0.0 10^3/uL (0-0.2) 08/04/24 05:50
Immature Gran % 0.6 % (0-0.5) H 08/04/24 05:50
Neutrophils % 92.7 % (42.2-75.2) H 08/04/24 05:50
Lymphocytes % 4.8 % (20.5-51.1) L 08/04/24 05:50
Monocytes % 1.8 % (1.7-9.3) 08/04/24 05:50
Eosinophils % 0.0 % (0-6) 08/04/24 05:50
Basophils % 0.1 % (0-2) 08/04/24 05:50
Microbiology Results
Micro:
08/03/24 15:55 Influenza Types A & B (KHADIJAH) - Final
Nasal Swab Negative for Influenza A & B, NAAT
Negative results must be combined with clinical observations
and patient history.
Nucleic Acid Amplification test (NAAT)performed on the
[employer] platform.
08/03/24 Chest CTA: ACUTE PULMONARY ARTERIAL EMBOLI in RIGHT LOWER LOBE SEGMENTAL PULMONARY ARTERIES.
2. Mild pulmonary arterial hypertension.
3. SEVERE BILATERAL UPPER LOBE EMPHYSEMA.
4. New 4.6 cm dense subpleural airspace consolidation in the posterior basilar segment of the left lower lobe. Diagnostic possibilities are (1) an acute pulmonary infarct or (2) left lower lobe pneumonia.
5. NEW MULTIFOCAL PERIPHERAL ENDOBRONCHIAL DISEASE throughout both lungs which is most likely infectious in etiology (possibly atypical mycobacterial infection).
6. Moderate bilateral bronchitis.
Assessment / Plan
# Acute PE
# Acute exacerbation of COPD
# Bronchitis - recently treated with 10d doxycycline
# Chronic pulm nodules
- COVID/FLU neg.
- Afebrile, no leukocytosis
- Suspect the new wedge-shape 4.6 cm consolidation is pulm infarct. Too acute for malignancy (compared to 06/21/[address] CT)
- Nonspecific ground-glass opacities peripheral endobronchial disease ' possibly atypical mycobacteria' as per CT report. Symptoms of pulm CATHRYN is indolent and chronic, not acute. Also, no bronchiectasis noted.
- DC ceftriaxone.
- Can continue azithromycin as inflammatory modulator for COPD, as per Pulm.
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
Severe COPD
pulmonary nodules
Lung cyst
HTN
HLD
Splenic artery aneurysm
cervicothoracic meningioma 2006
Cataracts
[2024-08-04] MEDS: CRESTOR 10 MG PO (22:01)
[2024-08-04] MEDS: NON-FORMULARY ITEM INH (22:05)
[2024-08-05] VITALS (9 sets, daily range): BP systolic 114–156; BP diastolic 64–84
[2024-08-05] MEDS: DECADRON 4 MG IV ×5 (00:23→23:10)
[2024-08-05] MEDS: HEPARIN 25000 UNITS/250 ML IV (04:03)
[2024-08-05 06:01] LABS: APTT 86.4 Sec (23.4-35.0)
[2024-08-05 06:02] LABS: % Basophils 0.1 % (0-2); % Immature Granulocytes 0.6 % (0-0.5); % Lymphocytes 4.5 % (20.5-51.1); % Monocytes 3.4 % (1.7-9.3); % Neutrophils 91.4 % (42.2-75.2); Absolute Immature Granulocytes 0.1 10^3/uL (0-0.05); Absolute Lymphocytes 0.6 10^3/uL (1.2-3.4); Absolute Monocytes 0.5 10^3/uL (0.1-0.6); Absolute Neutrophils 13.1 10^3/uL (1.4-6.5); Hematocrit 42.3 % (37.0-47.0); Hemoglobin 13.6 g/dL (12.0-16.0); Mean Corp Hgb Conc. 32.2 g/dL (33.0-37.0); Mean Corpuscular Hgb 28.4 pg (27.0-31.0); Mean Corpuscular Volume 88.3 fL (81.0-99.0); Mean Platelet Volume 10.1 fL (7.4-10.4); Nucleated Red Blood Cells % 0 %; Platelet Count 215 10^3/uL (130-400); Red Blood Cell Count 4.79 10^6/uL (4.20-5.40); Red Cell Dist. Width 14.1 % (11.5-14.5); White Blood Cell Count 14.4 10^3/uL (4.8-10.8)
[2024-08-05 06:23] LABS: ALT (SGPT) 31 U/L (0-35); AST (SGOT) 29 U/L (14-36); Albumin 3.6 g/dl (3.5-5.0); Alkaline Phosphatase 77 U/L (38-126); Blood Urea Nitrogen 24 mg/dl (7-17); Calcium 9.3 mg/dl (8.4-10.2); Carbon Dioxide 34 mmol/L (22-30); Chloride 100 mmol/L (98-107); Estimated Creatinine Clearance 67 ml/min; Glucose 168 mg/dl (70-99); Potassium 4.5 mmol/L (3.5-5.1); Sodium 137 mmol/L (135-145); Total Bilirubin 0.2 mg/dl (0.2-1.3); Total Protein 6.6 g/dl (6.3-8.2); eGFR > 60.00
[2024-08-05] MEDS: NON-FORMULARY ITEM 2 PUFF INH ×2 (06:41→20:54)
[2024-08-05] MEDS: THERAGRAN 1 TABLET PO (08:55)
[2024-08-05] MEDS: ZITHROMAX 250 MG PO (08:55)
--- NOTE | 2024-08-05 09:05 | W.PN.PUL3 ---
Today's Communication / Plan
-
Wean IV steroids today, transition to PO tomorrow if improving
Check PCT, if negative can likely stop abx
IV heparin transition to OAC per team
Check VBG to r/o high CO2
Eventual home O2 eval
Pulm OP FU recommended
Assessment
-
Patient is a 74-year-old female with history of HTN, presenting to ER for productive cough-white sputum, SOB/wheezing, 2 weeks prior. Treated with abx and prednisone and was notably hypoxemic in the PCP office to 85% on RA. Was sent to ER for
eval. On arrival, notably 79% on RA. Underwent CTA showing PE, she is placed on IV heparin. We are consulted for eval.
Acute hypoxic respiratory failure, 79% on RA
Acute RLL PE
LLL consolidation infarct vs PNA
AECOPD
Hyperglycemia
Elevated proBNP
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
Followed by Dr Garcia, last seen 2020
Former smoker�55-year 1 pack a day quit age 71
Pulmonary nodules
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
Depression�mild
Splenic artery aneurysm
HTN
HLD
Vitamin D deficiency
Seasonal allergic rhinitis
Prediabetes
Cervicothoracic meningioma 2006
Cataracts
Wrist surgery 02/2004
Tubal ligation 1980
Plan
Significant hypoxemia noted on arrival, O2 marion 79%
There is no known history of O2 use at home--last 6MWT in office had not needed it
Will need eventual home O2 eval
There is known prior history of lung disease including severe COPD/emphysema
She was last seen in our office in 2020 and has not returned in FU since, has appt in September
Had not been on her controller inhalers, placed on Breztri 1 week prior by her primary
CXR/CT obtained indicating RLL PE, she is placed on IV heparin
Eventual transition to OAC
Other imaging reviewed --possible LLL infiltrate
Check PCT to de-escalate abx
Started on IV steroids for AECOPD--wean further today
Eventual transition to PO prednisone
Wheezing on exam
Resume on home inhalers
Check VBG given met alkalosis
ECHO results in past reviewed, stable function
She has new stage I DD, proBNP somewhat high
Could be due to PE
Diuresis if indicated
Will need outpatient pulmonary evaluation in our office including PFTs and 6MWT
Reviewed with patient
Likely to move up her appt date pending discharge
I reviewed this at bedside with patient and
We will follow
Diagnostic Data
CXR 08/03/24- Cannot exclude some minor bibasilar subsegmental atelectasis, less likely pneumonia.
CT CHEST 08/03/24- 1. ACUTE PULMONARY ARTERIAL EMBOLI in RIGHT LOWER LOBE SEGMENTAL PULMONARY ARTERIES.
2. Mild pulmonary arterial hypertension.
3. SEVERE BILATERAL UPPER LOBE EMPHYSEMA.
4. New 4.6 cm dense subpleural airspace consolidation in the posterior basilar segment of the left lower lobe. Diagnostic possibilities are (1) an acute pulmonary infarct or (2) left lower lobe pneumonia.
5. NEW MULTIFOCAL PERIPHERAL ENDOBRONCHIAL DISEASE throughout both lungs which is most likely infectious in etiology (possibly atypical mycobacterial infection).
6. Moderate bilateral bronchitis.
7. 4.0 cm circumscribed benign-appearing cyst in the left side of the upper posterior mediastinum.
ECHO 08/04/24- Normal left ventricular chamber size. Normal left ventricular systolic function. Left ventricular ejection fraction is 65-70% by volumetric assessment. Normal regional wall motion. Normal left ventricular wall thickness. Stage I
diastolic dysfunction suggestive of abnormal relaxation. Normal right ventricular size and function. Normal atria. No significant valve abnormalities are observed. The IVC is moderately dilated and demonstrates normal respiratory variation. Right
atrial pressure estimated at 12 mmHg. No evidence of pulmonary hypertension. Compared to prior study of 06/26/2023, there is now diastolic dysfunction and the IVC is moderately dilated.
Spirometry 12/30/21: FEV1 0.74L 31%, FVC 1.6L 51%, ratio 46. Post FEV1 0.96L 41%, +BD response in FEV1 and FVC (severe obstruction).
Reports and relevant images were personally reviewed.
-----
Total time spent on this encounter _56__ minutes which includes review of history, physical exam, medications, llaboratory data, personal review of imaging, extensive review of outpatient records, and discussions with care team.
Subjective Data
-
Date of Service:
Date of Service: August 05, 2024
Chief Complaint: Pulmonary Follow Up
Subjective:
Feels better today, still some desat with exertion
Otherwise, no new complaints
Still coughing but overall improved
Objective Data
Data Reviewed
Vital Signs / I&O / Oxygen:
Vital Signs
Temp Pulse Resp BP Pulse Ox
97.6 F 84 23 137/67 95
08/05/24 03:25 08/05/24 06:43 08/05/24 06:43 08/05/24 06:00 08/05/24 06:00
SaO2 95
Nasal Cannula flow liters per 3
minute
Physical Exam
General: Comfortable and Other (NAD)
HEENT: Normocephalic, Anicteric and Moist Mucous Membranes
Cardiovascular: S1-S2 and Regular Rhythm
Respiratory: Wheeze (end exp), Crackles and Non-Labored Respirations
GI: Soft, Non Distended and Non Tender
Neurology: Awake, Alert, Oriented and No Motor Deficits
Skin: Warm, Dry and Good Color
Labs/Micro/Reports
Lab Data
08/05/24 05:23
08/05/24 05:22
Laboratory Results
08/04/24 08/05/24
11:50 05:22
APTT 73.8 H 86.4 H
Microbiology
08/03/24 15:55 Nasal Swab Influenza Types A & B (KHADIJAH) - Final
Negative for Influenza A & B, NAAT
Negative results must be combined with clinical observations
and patient history.
Nucleic Acid Amplification test (NAAT)performed on the
[employer] platform.
--- NOTE | 2024-08-05 10:00 | CM ---
Met patient and spouse. Patient remains on oxygen.
Patient and spouse hope home no needs.
--- NOTE | 2024-08-05 10:25 | W.PN.HOSP.TC ---
Today's Communication/Plan
-
see bold
Assessment / Plan
Assessment / Plan
Gen: NAD, AAOx3, appears chronically ill.
Eyes: EOMI, PERRLA, no scleral icterus.
Neck: supple.
CV: RRR, +S1/S2, no m/r/g.
Resp: B/L wheezes and rhonchi
Abd: +BS, soft, NT, ND
Skin: No rashes.
Neuro: CN 2-12 intact, non-focal.
Psych: Normal mood and affect.
CTA chest:
1. ACUTE PULMONARY ARTERIAL EMBOLI in RIGHT LOWER LOBE SEGMENTAL PULMONARY ARTERIES.
2. Mild pulmonary arterial hypertension.
3. SEVERE BILATERAL UPPER LOBE EMPHYSEMA.
4. New 4.6 cm dense subpleural airspace consolidation in the posterior basilar segment of the left lower lobe. Diagnostic possibilities are (1) an acute pulmonary infarct or (2) left lower lobe pneumonia.
5. NEW MULTIFOCAL PERIPHERAL ENDOBRONCHIAL DISEASE throughout both lungs which is most likely infectious in etiology (possibly atypical mycobacterial infection).
6. Moderate bilateral bronchitis.
7. 4.0 cm circumscribed benign-appearing cyst in the left side of the upper posterior mediastinum.
Acute hypoxic respiratory insufficiency (requiring O2 2L NC) secondary to Acute RLL PE and acute exac of COPD:
-CTA chest above
-currently on heparin gtt, transition to Eliquis tonight
-cont Decadron
-COVID/Flu NEG
-seen by ID. Recent bronchitis treated with 10 days of doxycycline. 4.6cm consolidation is likely pulmonary infarct. No indication for antibiotics at this time. Note azithromycin being used for anti-inflammatory properties.
-Note, pt with 55 pack year tobacco abuse disorder history, quit 3 years ago. Likely has chronic hypoxemic respiratory failure. Home O2 eval in the morning.
Other problems:
Essential HTN: with mild hyponatremia start Norvasc 5mg (will not resume home HCTZ)
HLD: cont statin
h/o splenic artery aneurysm: Per PCP note 06/08/24 patient wanted low-dose CT scan of the chest for lung cancer screening was advised does not have recommended screening for splenic artery aneurysm which could miss a growth and therefore ruptured
splenic artery aneurysm which can lead to she verbalized understanding and continued to decline so per note.
FULL/heparin drip
Anticipated Discharge: Within 24 hours
Subjective/Interval History
-
Date of Service: August 05, 2024
No new complaints.
Objective Data
-
Labs:
Laboratory Results
08/05/24 08/05/24
05:22 05:23
WBC 14.4 H
Hgb 13.6
Hct 42.3
Plt Count 215
APTT 86.4 H
Sodium 137
Potassium 4.5
Chloride 100
Carbon Dioxide 34 H
BUN 24 H
Creatinine 0.5 L
Glucose 168 H
Calcium 9.3
Total Bilirubin 0.2
AST 29
ALT 31
Alkaline Phosphatase 77
Vital Signs:
Vital Signs
Temp Pulse Resp BP Pulse Ox
97.7 F 78 20 156/84 94
08/05/24 09:25 08/05/24 09:25 08/05/24 09:25 08/05/24 09:25 08/05/24 09:25
--- NOTE | 2024-08-05 11:12 | W.PN.ID1 ---
Date of Service
Date of Service: August 05, 2024
Today's Communication
ID will sign off.
Assessment / Plan
# Acute PE
# Acute exacerbation of COPD
# Bronchitis - recently treated with 10d doxycycline
# Leukocytosis on steroid
# Chronic pulm nodules
- COVID/FLU neg.
- Afebrile
- Suspect the new wedge-shape 4.6 cm consolidation is pulm infarct. Too acute for malignancy (compared to 06/21/24 CT)
- Nonspecific ground-glass opacities peripheral endobronchial disease ' possibly atypical mycobacteria' as per CT report. Symptoms of pulm CATHRYN is indolent and chronic, not acute. Also, no bronchiectasis noted.
- Will defer azithromycin to Pulm as anti-inflammatory adjunct for AE-COPD
ID will sign off.
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
Severe COPD
pulmonary nodules
Lung cyst
HTN
HLD
Splenic artery aneurysm
cervicothoracic meningioma 2006
Cataracts
Chief Complaint
-: Other (PE)
Subjective / Review of Systems
Mild SOB
Vital Signs / Physical Exam
Vital Signs
Vital Signs
Temp Pulse Resp BP Pulse Ox
97.7 F 78 20 156/84 94
08/05/24 09:25 08/05/24 09:25 08/05/24 09:25 08/05/24 09:25 08/05/24 09:25
Physical Exam
Constitutional: No Acute Distress
Pulmonary: Rhonchi
Gastrointestinal: Soft, Non Tender and Normal Bowel Sounds
Genito-Urinary: Negative CVA Tenderness
Objective Data
Lab Data
Lab Results
08/05/24 05:23
08/05/24 05:22
APTT 86.4 Sec (23.4-35.0) H 08/05/24 05:22
Estimated Creat Clear 67 ml/min 08/05/24 05:22
Total Bilirubin 0.2 mg/dl (0.2-1.3) 08/05/24 05:22
AST 29 U/L (14-36) 08/05/24 05:22
ALT 31 U/L (0-35) 08/05/24 05:22
Alkaline Phosphatase 77 U/L (38-126) 08/05/24 05:22
Most recent labs reviewed.
Micro Results:
08/03/24 15:55 Influenza Types A & B (KHADIJAH) - Final
Nasal Swab Negative for Influenza A & B, NAAT
Negative results must be combined with clinical observations
and patient history.
Nucleic Acid Amplification test (NAAT)performed on the
[employer] platform.
08/03/24 Chest CTA: ACUTE PULMONARY ARTERIAL EMBOLI in RIGHT LOWER LOBE SEGMENTAL PULMONARY ARTERIES.
2. Mild pulmonary arterial hypertension.
3. SEVERE BILATERAL UPPER LOBE EMPHYSEMA.
4. New 4.6 cm dense subpleural airspace consolidation in the posterior basilar segment of the left lower lobe. Diagnostic possibilities are (1) an acute pulmonary infarct or (2) left lower lobe pneumonia.
5. NEW MULTIFOCAL PERIPHERAL ENDOBRONCHIAL DISEASE throughout both lungs which is most likely infectious in etiology (possibly atypical mycobacterial infection).
6. Moderate bilateral bronchitis.
[2024-08-05] MEDS: NORVASC 5 MG PO (12:03)
[2024-08-05 14:40] LABS: Venous Blood Gas B.E. 7.5 mmol/L (-4 to +4); Venous Blood Gas HCO3 33.7 mmol/L (22-27); Venous Blood Gas O2 Sat % 99.5 %; Venous Blood Gas pCO2 52 mmHg (35-48); Venous Blood Gas pH 7.42 (7.32-7.43); Venous Blood Gas pO2 115 mmHg (30-50)
[2024-08-05 15:22] LABS: Procalcitonin 0.06 ng/ml (0.0-0.25)
[2024-08-05] MEDS: ELIQUIS 10 MG PO (20:22)
[2024-08-05] MEDS: CRESTOR 10 MG PO (21:32)
[2024-08-06 03:50] VITALS: BP 144/85
[2024-08-06 04:09] VITALS: BMI 19.9
[2024-08-06] MEDS: NON-FORMULARY ITEM 2 PUFF INH (07:17)
[2024-08-06 07:24] VITALS: BP 151/91
[2024-08-06 07:27] LABS: % Basophils 0.1 % (0-2); % Immature Granulocytes 0.6 % (0-0.5); % Lymphocytes 5.3 % (20.5-51.1); % Monocytes 4.1 % (1.7-9.3); % Neutrophils 89.9 % (42.2-75.2); Absolute Immature Granulocytes 0.1 10^3/uL (0-0.05); Absolute Lymphocytes 0.6 10^3/uL (1.2-3.4); Absolute Monocytes 0.5 10^3/uL (0.1-0.6); Absolute Neutrophils 10.4 10^3/uL (1.4-6.5); Hematocrit 45.1 % (37.0-47.0); Hemoglobin 14.3 g/dL (12.0-16.0); Mean Corp Hgb Conc. 31.7 g/dL (33.0-37.0); Mean Corpuscular Hgb 28.2 pg (27.0-31.0); Nucleated Red Blood Cells % 0 %; Platelet Count 235 10^3/uL (130-400); Red Blood Cell Count 5.07 10^6/uL (4.20-5.40); Red Cell Dist. Width 14.3 % (11.5-14.5); White Blood Cell Count 11.5 10^3/uL (4.8-10.8)
--- NOTE | 2024-08-06 07:58 | W.PN.HOSP.TC ---
Today's Communication/Plan
-
see bold
Assessment / Plan
Assessment / Plan
Gen: remains NAD, AAOx3, appears chronically ill.
Eyes: EOMI, PERRLA, no scleral icterus.
Neck: supple.
CV: remains RRR, +S1/S2, no m/r/g.
Resp: mild end expiratory wheezes
Abd: +BS, soft, NT, ND
Skin: No rashes.
Neuro: CN 2-12 intact, non-focal.
Psych: Normal mood and affect.
CTA chest:
1. ACUTE PULMONARY ARTERIAL EMBOLI in RIGHT LOWER LOBE SEGMENTAL PULMONARY ARTERIES.
2. Mild pulmonary arterial hypertension.
3. SEVERE BILATERAL UPPER LOBE EMPHYSEMA.
4. New 4.6 cm dense subpleural airspace consolidation in the posterior basilar segment of the left lower lobe. Diagnostic possibilities are (1) an acute pulmonary infarct or (2) left lower lobe pneumonia.
5. NEW MULTIFOCAL PERIPHERAL ENDOBRONCHIAL DISEASE throughout both lungs which is most likely infectious in etiology (possibly atypical mycobacterial infection).
6. Moderate bilateral bronchitis.
7. 4.0 cm circumscribed benign-appearing cyst in the left side of the upper posterior mediastinum.
Acute hypoxic respiratory insufficiency (requiring O2 2L NC) secondary to Acute RLL PE and acute exac of COPD:
-CTA chest above
-was on heparin gtt, now transitioned to Eliquis
-has been on Decadron, transition to Prednisone taper
-COVID/Flu NEG
-seen by ID. Recent bronchitis treated with 10 days of doxycycline. 4.6cm consolidation is likely pulmonary infarct. No indication for antibiotics at this time. Note azithromycin being used for anti-inflammatory properties.
-Note, pt with 55 pack year tobacco abuse disorder history, quit 3 years ago. Likely has chronic hypoxemic respiratory failure. Home O2 eval completed as below.
-case discussed with Dr. Garcia and pt has been cleared for discharge
Other problems:
Essential HTN: with mild hyponatremia start Norvasc 5mg (will not resume home HCTZ)
HLD: cont statin
h/o splenic artery aneurysm: Per PCP note 06/08/24 patient wanted low-dose CT scan of the chest for lung cancer screening was advised does not have recommended screening for splenic artery aneurysm which could miss a growth and therefore ruptured
splenic artery aneurysm which can lead to she verbalized understanding and continued to decline so per note.
Patient is in need of oxygen on exertion due to pulse oximetry of 93% on room air at rest; 86% on room air with exertion.
Patient was placed on 4L O2 via nasal cannula with saturation of 91%. Oxygen will help to improve hypoxemia.
Patient is mobile within the home. Oxygen will improve the patient's symptoms.
FULL/Eliquis
Total time spent on d/c = 40 min. This included today's physical exam, progress note, review of laboratory and diagnostic data, preparation of discharge documents and prescriptions, and discussions about the pt's hospital course and discharge plan
with the patient and other medical support assistant involved in the patient's care.
Anticipated Discharge: Today
Subjective/Interval History
-
Date of Service: August 06, 2024
Shortness of breath is improved from yesterday.
Objective Data
-
Labs:
Laboratory Results
08/06/24
07:00
WBC 11.5 H
Hgb 14.3
Hct 45.1
Plt Count 235
Sodium Pending
Potassium Pending
Chloride Pending
Carbon Dioxide Pending
BUN Pending
Creatinine Pending
Glucose Pending
Calcium Pending
Total Bilirubin Pending
AST Pending
ALT Pending
Alkaline Phosphatase Pending
Vital Signs:
Vital Signs
Temp Pulse Resp BP Pulse Ox
97.6 F 96 24 151/91 91
08/06/24 07:24 08/06/24 07:24 08/06/24 07:24 08/06/24 07:24 08/06/24 07:24
I&O
08/05/24 08/06/24 08/07/24
06:59 06:59 06:59
Intake Total 960 / 960
Balance 960 / 960
[2024-08-06 08:09] LABS: ALT (SGPT) 32 U/L (0-35); AST (SGOT) 27 U/L (14-36); Albumin 3.7 g/dl (3.5-5.0); Alkaline Phosphatase 73 U/L (38-126); Blood Urea Nitrogen 28 mg/dl (7-17); Calcium 9.3 mg/dl (8.4-10.2); Carbon Dioxide 31 mmol/L (22-30); Chloride 101 mmol/L (98-107); Estimated Creatinine Clearance 67 ml/min; Glucose 187 mg/dl (70-99); Potassium 4.5 mmol/L (3.5-5.1); Sodium 138 mmol/L (135-145); Total Bilirubin 0.3 mg/dl (0.2-1.3); Total Protein 6.7 g/dl (6.3-8.2); eGFR > 60.00
[2024-08-06] MEDS: THERAGRAN 1 TABLET PO (08:29)
[2024-08-06] MEDS: ELIQUIS 10 MG PO (08:29)
[2024-08-06] MEDS: DECADRON 4 MG IV (08:29)
[2024-08-06] MEDS: NORVASC 5 MG PO (08:30)
[2024-08-06] MEDS: ZITHROMAX 250 MG PO (08:30)
--- NOTE | 2024-08-06 09:17 | W.PN.PUL3 ---
Today's Communication / Plan
-
Doing well today, home O2 eval showing need for O2 with exertion-reviewed this with patient and
Can setup POC as OP
Prednisone taper, 50mg to taper every 3-4 days by 10mg until off
Resume on Breztri as OP
We will arrange FU in 1-2 weeks w/ PFTs, she can keep her September appt as well
D/c planning per team
All questions answered
Assessment
-
Patient is a 74-year-old female with history of HTN, presenting to ER for productive cough-white sputum, SOB/wheezing, 2 weeks prior. Treated with abx and prednisone and was notably hypoxemic in the PCP office to 85% on RA. Was sent to ER for
eval. On arrival, notably 79% on RA. Underwent CTA showing PE, she is placed on IV heparin. We are consulted for eval.
Acute hypoxic respiratory failure, 79% on RA
Acute RLL PE
LLL consolidation infarct vs PNA
AECOPD
Hyperglycemia
Elevated proBNP
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
Followed by Dr Garcia, last seen 2020
Former smoker�55-year 1 pack a day quit age 71
Pulmonary nodules
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
Depression�mild
Splenic artery aneurysm
HTN
HLD
Vitamin D deficiency
Seasonal allergic rhinitis
Prediabetes
Cervicothoracic meningioma 2006
Cataracts
Wrist surgery 02/2004
Tubal ligation 1980
Plan
Significant hypoxemia noted on arrival, O2 marion 79%
There is no known history of O2 use at home--last 6MWT in office had not needed it
Home O2 eval--93% on RA, needing 4L with exertion to maintain sat >90%, home O2 set up per team
We reviewed how to use this at home, when to check, POC set up as OP
There is known prior history of lung disease including severe COPD/emphysema
She was last seen in our office in 2020 and has not returned in FU since, has appt in September
Had not been on her controller inhalers, placed on Breztri 1 week prior by her primary
Resume max inhaler therapy
CXR/CT obtained indicating RLL PE, she is placed on IV heparin
Transitioned to OAC
Other imaging reviewed --possible LLL infiltrate
PCT negative, can stop abx
Started on IV steroids for AECOPD--transition to PO prednisone
Resume on home inhalers
Check VBG given met alkalosis--she has chronic CO2 retention/compensated
Will obtain sleep study as OP for eval for TRACEY
ECHO results in past reviewed, stable function
She has new stage I DD, proBNP somewhat high
Could be due to PE
Diuresis if indicated
Will need outpatient pulmonary evaluation in our office including PFTs and 6MWT
Reviewed with patient
Likely to move up her appt date pending discharge
I reviewed this at bedside with patient and
Discharge planning reviewed with patient and , they are agreeable
Diagnostic Data
CXR 08/03/24- Cannot exclude some minor bibasilar subsegmental atelectasis, less likely pneumonia.
CT CHEST 08/03/24- 1. ACUTE PULMONARY ARTERIAL EMBOLI in RIGHT LOWER LOBE SEGMENTAL PULMONARY ARTERIES.
2. Mild pulmonary arterial hypertension.
3. SEVERE BILATERAL UPPER LOBE EMPHYSEMA.
4. New 4.6 cm dense subpleural airspace consolidation in the posterior basilar segment of the left lower lobe. Diagnostic possibilities are (1) an acute pulmonary infarct or (2) left lower lobe pneumonia.
5. NEW MULTIFOCAL PERIPHERAL ENDOBRONCHIAL DISEASE throughout both lungs which is most likely infectious in etiology (possibly atypical mycobacterial infection).
6. Moderate bilateral bronchitis.
7. 4.0 cm circumscribed benign-appearing cyst in the left side of the upper posterior mediastinum.
ECHO 08/04/24- Normal left ventricular chamber size. Normal left ventricular systolic function. Left ventricular ejection fraction is 65-70% by volumetric assessment. Normal regional wall motion. Normal left ventricular wall thickness. Stage I
diastolic dysfunction suggestive of abnormal relaxation. Normal right ventricular size and function. Normal atria. No significant valve abnormalities are observed. The IVC is moderately dilated and demonstrates normal respiratory variation. Right
atrial pressure estimated at 12 mmHg. No evidence of pulmonary hypertension. Compared to prior study of 06/26/2023, there is now diastolic dysfunction and the IVC is moderately dilated.
Spirometry 07/12/21: FEV1 0.74L 31%, FVC 1.6L 51%, ratio 46. Post FEV1 0.96L 41%, +BD response in FEV1 and FVC (severe obstruction).
Reports and relevant images were personally reviewed.
-----
Total time spent on this encounter _57__ minutes which includes review of history, physical exam, medications, llaboratory data, personal review of imaging, extensive review of outpatient records, and discussions with care team.
Subjective Data
-
Date of Service:
Date of Service: August 06, 2024
Chief Complaint: Pulmonary Follow Up
Subjective:
Doing well, stable on RA
Ambulation desat noted, reviewed with patient
Objective Data
Data Reviewed
Vital Signs / I&O / Oxygen:
Vital Signs
Temp Pulse Resp BP Pulse Ox
97.6 F 96 24 151/91 91
08/06/24 07:24 08/06/24 07:24 08/06/24 07:24 08/06/24 07:24 08/06/24 07:24
Intake and Output
08/05/24 08/06/24 08/07/24
06:59 06:59 06:59
Intake Total 960 / 960
Balance 960 / 960
SaO2 91
Nasal Cannula flow liters per 2
minute
Physical Exam
General: Comfortable and Other (NAD)
HEENT: Normocephalic, Anicteric and Moist Mucous Membranes
Cardiovascular: S1-S2 and Regular Rhythm
Respiratory: Clear, Crackles (slight) and Non-Labored Respirations
GI: Soft, Non Distended and Non Tender
Neurology: Awake, Alert, Oriented and No Motor Deficits
Skin: Warm, Dry and Good Color
Labs/Micro/Reports
Lab Data
08/06/24 07:00
08/06/24 07:00
Microbiology
08/03/24 15:55 Nasal Swab Influenza Types A & B (KHADIJAH) - Final
Negative for Influenza A & B, NAAT
Negative results must be combined with clinical observations
and patient history.
Nucleic Acid Amplification test (NAAT)performed on the
[employer] platform.
--- NOTE | 2024-08-06 09:28 | CM ---
CM reviewed medical records. Plan for discharge to home with home oxygen. Prescription and clinical information faxed to [facility] at [facility].
[2024-08-06] MEDS: DELTASONE 20 MG PO (09:48)
[2024-08-06 11:04] VITALS: BP 142/84
--- NOTE | 2024-08-06 15:53 | W.DCSUMMARY ---
Discharge Summary
Discharge Data
Date of Admission: 08/03/24
Date of Discharge: 08/06/24
-
Pending Results: No
Hospital Course
Primary diagnoses:
Acute hypoxemic respiratory sufficiency due to acute pulmonary embolism and acute exacerbation of chronic obstructive pulmonary disease
Secondary diagnoses:
Essential hypertension
Hyperlipidemia
h/o splenic artery aneurysm
Consultants:
Pulmonary
Infectious disease
Imaging:
CTA chest:
1. ACUTE PULMONARY ARTERIAL EMBOLI in RIGHT LOWER LOBE SEGMENTAL PULMONARY ARTERIES.
2. Mild pulmonary arterial hypertension.
3. SEVERE BILATERAL UPPER LOBE EMPHYSEMA.
4. New 4.6 cm dense subpleural airspace consolidation in the posterior basilar segment of the left lower lobe. Diagnostic possibilities are (1) an acute pulmonary infarct or (2) left lower lobe pneumonia.
5. NEW MULTIFOCAL PERIPHERAL ENDOBRONCHIAL DISEASE throughout both lungs which is most likely infectious in etiology (possibly atypical mycobacterial infection).
6. Moderate bilateral bronchitis.
7. 4.0 cm circumscribed benign-appearing cyst in the left side of the upper posterior mediastinum.
Echo: Normal left ventricular chamber size. Normal left ventricular systolic
function. Left ventricular ejection fraction is 65-70% by volumetric
assessment. Normal regional wall motion. Normal left ventricular wall
thickness. Stage I diastolic dysfunction suggestive of abnormal relaxation.
Normal right ventricular size and function.
Normal atria.
No significant valve abnormalities are observed.
The IVC is moderately dilated and demonstrates normal respiratory variation.
Right atrial pressure estimated at 12 mmHg.
No evidence of pulmonary hypertension.
Compared to prior study of 06/26/2023, there is now diastolic dysfunction and
the IVC is moderately dilated.
Hospital course: 74-year-old female who presented with chief complaints of shortness of breath and wheezing as outlined in the H&P done on admission. Imaging above notable for acute pulmonary arterial emboli in the right lower lobe segmental
pulmonary arteries as well as a new 4.6 mm dense subpleural airspace consolidation at the posterior basilar segment of the left lower lobe. The patient was on a heparin drip and then transition to Eliquis. She was on IV Decadron and then
transition to a prednisone taper. She was seen in consultation by infectious disease who felt the 4.6 mm dense subpleural airspace consolidation in the posterior basal segment of the left lower lobe was a pulmonary infarct and not pneumonia. The
patient was on antibiotics which were stopped. The patient had a home O2 eval and required [id number] oxygen on discharge. She was discharged in medically stable condition.
Discharge Plan
-
Patient Disposition: Home (Routine Discharge)
Condition: Good
Referrals:
Andre Hooker MD [Active] - in three to four weeks
Osiris Garcia DO [Active] - in one to two weeks
(Has appt, September--keep w/ Peña
Need hosp d/c FU in 1-2 weeks, with [employer] w/ PFTs)
Idania Mejia CRNP [Family Provider] - in less than 1 week
Prescriptions:
New
azithromycin 250 mg Tablet
250 mg PO DAILY Qty: 3 0RF
amlodipine 5 mg Tablet
5 mg PO DAILY Qty: 30 0RF
Eliquis 5 mg Tablet
10 mg PO BID Qty: 24 0RF
Rx Instructions:
last dose 08/12/24AM
Eliquis 5 mg tablet
5 mg PO BID Qty: 60 0RF
Rx Instructions:
First dose 08/12/24PM
prednisone 10 mg tablet
10 mg PO DIRECTED Qty: 30 0RF
Rx Instructions:
Taper: 40mg daily x 3 days, 30mg daily x 3 days, 20mg daily x 3 days, 10mg daily x 3 days
Continued
therapeutic multivitamin Tablet
1 tab PO DAILY
calcium carbonate 500 mg calcium (1,250 mg) Tablet
500 mg PO DAILY
garlic Capsule
1,000 mg PO DAILY
rosuvastatin [Crestor] 10 mg Tablet
10 mg PO DAILY
cholecalciferol (vitamin D3) [Vitamin D3] 25 mcg (1,000 unit) Tablet
25 mcg PO DAILY
Breessencetri Aerosphere 160-9-4.8 mcg/actuation Hfa Aerosol Inhaler
2 inh INHALATION R BID
Rx Instructions:
pt may take own on her
Discontinued
hydrochlorothiazide 25 mg Tablet
25 mg PO DAILY
Discharge Orders:
Discharge Patient (As Directed); Ordered 08/06/24
Ordered By: Aris Alvarez
Discharge Date and Time
Discharge Date/Time: 08/06/24 13:05
Print Language: UPPER SORBIAN
== END 2024-08-06 13:05 | disposition home or self-care (01) | DRG 176 ==
LOC: 1 ACUTE 23:26
PROVIDERS: Clinical Nurse Specialist Family Health; Internal Medicine; ADMITTING PHYSICIAN Internal Medicine; ATTENDING PHYSICIAN Internal Medicine; EMERGENCY PHYSICIAN Emergency Medicine; FAMILY PHYSICIAN Nurse Practitioner Adult Health; OTHER PHYSICIAN Internal Medicine; OTHER PHYSICIAN Internal Medicine Infectious Disease
DX: I26.99 Other pulmonary embolism without acute cor pulmonale (principal); J44.1 Chronic obstructive pulmonary disease with (acute) exacerbation; J98.11 Atelectasis; J44.0 Chronic obstructive pulmonary disease with (acute) lower respiratory infection; Z87.891 Personal history of nicotine dependence; I12.9 Hypertensive chronic kidney disease with stage 1 through stage 4 chronic kidney disease, or unspecified chronic kidney disease; N18.2 Chronic kidney disease, stage 2 (mild); E78.5 Hyperlipidemia, unspecified; E55.9 Vitamin D deficiency, unspecified; F32.A Depression, unspecified; J43.9 Emphysema, unspecified; Z79.01 Long term (current) use of anticoagulants
CPT/HCPCS: 71045; 71275; 80053; 80061; 82805; 83036; 83735; 83880; 84145; 84484; 85025; 85027; 85730; 87502; 87811; 93005; 93306; 94640; 96374; 96375; 99285; Q9967

== ENCOUNTER → 2024-09-23 11:25 | Outpatient (REF) | payer MEDICARE, BC, SELFPAY | LOC: HWRAD 11:25 | PROVIDERS: ATTENDING PHYSICIAN Internal Medicine; FAMILY PHYSICIAN Nurse Practitioner Adult Health | DX: R93.89 Abnormal findings on diagnostic imaging of other specified body structures (principal) | CPT/HCPCS: 71046 ==

== ENCOUNTER → 2024-09-24 10:44 | Outpatient (REF) | payer MEDICARE, BC, SELFPAY ==
[2024-09-24 13:11] LABS: % Basophils 0.7 % (0-2); % Eosinophils 1.2 % (0-6); % Immature Granulocytes 0.3 % (0-0.5); % Lymphocytes 13.1 % (20.5-51.1); % Monocytes 9.3 % (1.7-9.3); % Neutrophils 75.4 % (42.2-75.2); Absolute Eosinophils 0.1 10^3/uL (0-0.7); Absolute Lymphocytes 0.8 10^3/uL (1.2-3.4); Absolute Monocytes 0.6 10^3/uL (0.1-0.6); Absolute Neutrophils 4.6 10^3/uL (1.4-6.5); Hematocrit 49.4 % (37.0-47.0); Hemoglobin 16.2 g/dL (12.0-16.0); Mean Corp Hgb Conc. 32.8 g/dL (33.0-37.0); Mean Corpuscular Hgb 28.5 pg (27.0-31.0); Mean Corpuscular Volume 86.8 fL (81.0-99.0); Nucleated Red Blood Cells % 0 %; Platelet Count 255 10^3/uL (130-400); Red Blood Cell Count 5.69 10^6/uL (4.20-5.40); Red Cell Dist. Width 14.5 % (11.5-14.5); White Blood Cell Count 6.1 10^3/uL (4.8-10.8)
[2024-09-24 13:19] LABS: Urine Albumin Negative (Neg - Trace); Urine Bilirubin Negative (Negative); Urine Character Clear (Clear); Urine Color Yellow; Urine Glucose Negative (Negative); Urine Ketone Negative (Negative); Urine Leukocyte Negative (Negative); Urine Nitrite Negative (Negative); Urine Occult Blood 1+ (Negative); Urine Urobilinogen Negative (Neg - 1+)
[2024-09-24 13:30] LABS: Glycohemoglobin (HgbA1c) 6.5 % (4.0-5.6)
[2024-09-24 13:32] LABS: ALT (SGPT) 41 U/L (0-35); AST (SGOT) 35 U/L (14-36); Albumin 4.3 g/dl (3.5-5.0); Alkaline Phosphatase 60 U/L (38-126); Blood Urea Nitrogen 19 mg/dl (7-17); Calcium 10.2 mg/dl (8.4-10.2); Carbon Dioxide 33 mmol/L (22-30); Chloride 96 mmol/L (98-107); Glucose 117 mg/dl (70-99); Potassium 4.2 mmol/L (3.5-5.1); Sodium 135 mmol/L (135-145); Total Bilirubin 0.8 mg/dl (0.2-1.3); Total Cholesterol 220 mg/dl (50-199); Total Protein 7.3 g/dl (6.3-8.2); Triglyceride 91 mg/dl (10-149); Very Low Density Lipoprotein 18 mg/dl (0-30); eGFR > 60.00
[2024-09-24 13:38] LABS: Vitamin D, 25-OH*** 60.9 ng/mL (30-80)
[2024-09-24 13:45] LABS: HDL Cholesterol 115 mg/dl; LDL Cholesterol, Calculated 87 mg/dl
[2024-09-24 13:52] LABS: TSH Reflex To Free T4 0.88 uIU/ml (0.47-4.68)
[2024-09-24 14:25] LABS: Urine Amorphous Seen; Urine Squamous Cell 21-25 /LPF (Few)
[2024-09-24 14:26] LABS: Urine Red Blood Cell 0-2 /HPF (0-2)
[2024-09-24 14:27] LABS: Urine White Cell 0-2 /HPF (0-5)
[2024-09-24 14:32] LABS: Microalbumin/creatinine Ratio 39.5 mg/g
== END ==
LOC: HWLAB 10:44
PROVIDERS: ATTENDING PHYSICIAN Nurse Practitioner Adult Health
DX: E78.00 Pure hypercholesterolemia, unspecified (principal); E55.9 Vitamin D deficiency, unspecified; R80.9 Proteinuria, unspecified; R73.03 Prediabetes; D75.1 Secondary polycythemia
CPT/HCPCS: 36415; 80053; 80061; 81003; 81015; 82043; 82306; 82570; 83036; 84443; 85025

== ENCOUNTER → 2024-12-22 10:56 | Outpatient (REF) | payer MEDICARE, BC, SELFPAY | LOC: HWWDC 10:56 | PROVIDERS: ATTENDING PHYSICIAN Nurse Practitioner Adult Health | DX: Z12.31 Encounter for screening mammogram for malignant neoplasm of breast (principal) | CPT/HCPCS: 77063; 77067 ==

== ENCOUNTER → 2025-01-05 08:33 | Outpatient (REF) | payer MEDICARE, BC, SELFPAY ==
[2025-01-05 09:45] LABS: % Basophils 0.4 % (0-2); % Eosinophils 0.9 % (0-6); % Immature Granulocytes 0.3 % (0-0.5); % Lymphocytes 12.3 % (20.5-51.1); % Monocytes 7.8 % (1.7-9.3); % Neutrophils 78.3 % (42.2-75.2); Absolute Eosinophils 0.1 10^3/uL (0-0.7); Absolute Lymphocytes 0.9 10^3/uL (1.2-3.4); Absolute Monocytes 0.6 10^3/uL (0.1-0.6); Absolute Neutrophils 5.8 10^3/uL (1.4-6.5); Hematocrit 50.5 % (37.0-47.0); Hemoglobin 16.9 g/dL (12.0-16.0); Mean Corp Hgb Conc. 33.5 g/dL (33.0-37.0); Mean Corpuscular Volume 86.8 fL (81.0-99.0); Mean Platelet Volume 9.9 fL (7.4-10.4); Nucleated Red Blood Cells % 0 %; Platelet Count 230 10^3/uL (130-400); Red Blood Cell Count 5.82 10^6/uL (4.20-5.40); Red Cell Dist. Width 13.1 % (11.5-14.5); White Blood Cell Count 7.4 10^3/uL (4.8-10.8)
[2025-01-05 10:30] LABS: Glycohemoglobin (HgbA1c) 6.2 % (4.0-5.6)
[2025-01-05 10:31] LABS: Microalbumin/creatinine Ratio 24.8 mg/g
[2025-01-05 10:45] LABS: ALT (SGPT) 22 U/L (0-35)
== END ==
LOC: HWLAB 08:33
PROVIDERS: ATTENDING PHYSICIAN Nurse Practitioner Adult Health
DX: R74.01 Elevation of levels of liver transaminase levels (principal); R80.9 Proteinuria, unspecified; D75.1 Secondary polycythemia; R73.03 Prediabetes
CPT/HCPCS: 36415; 82043; 82570; 83036; 84460; 85025

== ENCOUNTER → 2025-06-27 10:52 | Outpatient (REF) | payer MEDICARE, BC, SELFPAY | LOC: HWRAD 10:52 | PROVIDERS: ATTENDING PHYSICIAN Nurse Practitioner Adult Health | DX: Z78.0 Asymptomatic menopausal state (principal) | CPT/HCPCS: 77080 ==

== ENCOUNTER → 2025-07-08 11:58 | Outpatient (REF) | payer MEDICARE, BC, SELFPAY ==
[2025-07-08 15:11] LABS: Hematocrit 49.7 % (37.0-47.0); Hemoglobin 16.2 g/dL (12.0-16.0); Mean Corp Hgb Conc. 32.6 g/dL (33.0-37.0); Mean Corpuscular Volume 84.8 fL (81.0-99.0); Nucleated Red Blood Cells % 0 %; Platelet Count 238 10^3/uL (130-400); Red Cell Dist. Width 14.6 % (11.5-14.5)
[2025-07-08 15:27] LABS: ALT (SGPT) 23 U/L (0-35); AST (SGOT) 31 U/L (14-36); Albumin 4.7 g/dl (3.5-5.0); Alkaline Phosphatase 59 U/L (38-126); Blood Urea Nitrogen 24 mg/dl (7-17); Calcium 10.2 mg/dl (8.4-10.2); Carbon Dioxide 32 mmol/L (22-30); Chloride 97 mmol/L (98-107); Glucose 101 mg/dl (70-99); Potassium 4.0 mmol/L (3.5-5.1); Sodium 136 mmol/L (135-145); Total Protein 7.9 g/dl (6.3-8.2); Very Low Density Lipoprotein 15 mg/dl (0-30); eGFR > 60.00
[2025-07-08 15:37] LABS: HDL Cholesterol 110 mg/dl; LDL Cholesterol, Calculated 99 mg/dl
[2025-07-08 15:46] LABS: Microalb - Urine Creatinine 95.200 mg/dl
[2025-07-08 15:48] LABS: Microalbumin, Random Urine 3.9 mg/dl (0.6-1.7)
[2025-07-09 09:55] LABS: Glycohemoglobin (HgbA1c) 6.2 % (4.0-5.9)
== END ==
LOC: HWLAB 11:58
PROVIDERS: ATTENDING PHYSICIAN Nurse Practitioner Adult Health
DX: R73.03 Prediabetes (principal); R80.9 Proteinuria, unspecified; D75.1 Secondary polycythemia; E78.00 Pure hypercholesterolemia, unspecified
CPT/HCPCS: 36415; 80053; 80061; 82043; 82570; 83036; 85025